=== PATIENT | female | born 1990 | race Hispanic/Latino ===

== ENCOUNTER 2020-11-01 08:31 | Emergency (ER) | payer OTHER, SELFPAY ==
[2020-11-01 09:04] LABS: Bilirubin Negative (Negative); Blood, Urine Trace (Negative); Clarity Clear (Clear); Glucose, Urine (Dipstick) Negative (Negative); Ketone, Urine Negative (Negative); Leukocyte Negative (Negative); Nitrite Negative (Negative); Protein, Urine (Dipstick) Negative (Neg-Trace); Specific Gravity, Urine 1.025 (1.005-1.030); pH, Urine 5.5 (5.0-9.0)
[2020-11-01 09:07] LABS: Pregnancy Test - Urine (BHCG) Negative (Negative)
[2020-11-01 09:08] LABS: Specific Gravity 1.025 (1.002-1.036)
[2020-11-01 09:09] LABS: Pregu Control Background? CLEAR/WHITE (CLR/WHITE); Pregu Control Bar Appear? YES (CONTROL BAR)
[2020-11-01 09:20] LABS: Bacteria/HPF Rare-Few HPF (None Seen); RBC/HPF 0-3 HPF (0-3); Squamous Epithelial 0-3 HPF (0-3); WBC/HPF 0-3 HPF (0-3)
[2020-11-01] MEDS ORDERED: cefTRIAXone\\ROCEPHIN 500 MG VIAL ONE (09:30)
[2020-11-01] MEDS ORDERED: Lidocaine 1% PF 5 ML VIAL ONE (09:30)
[2020-11-02 21:19] LABS: Chlam.trachomatis by PCR,Urine Not Detected (NotDetected)
== END 2020-11-01 09:45 | disposition home or self-care (01) ==
LOC: BURERS 08:31
DX: R10.2 Pelvic and perineal pain (principal); A64 Unspecified sexually transmitted disease; F17.210 Nicotine dependence, cigarettes, uncomplicated
CPT/HCPCS: 81003; 81015; 81025; 87480; 87491; 87510; 87591; 87660; 96372; 99284; J0696